=== PATIENT | female | born 1995 | race Caucasian/White ===

== ENCOUNTER 2019-12-22 10:07 | Emergency (ER) | payer OTHER ==
[~2019-12-22] VITALS: Ht 152.4 cm; Wt 54.4 kg
[2019-12-22] MEDS ORDERED: ZITHROMAX200 MG PO (13:33)
== END 2019-12-22 13:46 | disposition home or self-care (01) ==
LOC: ER 10:07
DX: O26.891 Other specified pregnancy related conditions, first trimester (principal); I10 Essential (primary) hypertension; Z3A.09 9 weeks gestation of pregnancy; Z03.818 Encounter for observation for suspected exposure to other biological agents ruled out

== ENCOUNTER → 2020-03-09 | Outpatient (CLI) | payer OTHER ==
[~2020-03-09] MED LIST: ZITHROMAX200 MG PO
== END | disposition home or self-care (01) ==
LOC: PRENATAL 08:00
PROVIDERS: ATTEND Obstetrics & Gynecology Maternal & Fetal Medicine
DX: O35.3XX1 Maternal care for (suspected) damage to fetus from viral disease in mother, fetus 1 (principal); O98.512 Other viral diseases complicating pregnancy, second trimester; O35.0XX1 Maternal care for (suspected) central nervous system malformation in fetus, fetus 1; Z36.89 Encounter for other specified antenatal screening; Z3A.20 20 weeks gestation of pregnancy

== ENCOUNTER → 2020-05-31 | Outpatient (CLI) | payer OTHER ==
[~2020-05-31] MED LIST changes: +ATABEX DHA 200200 MG PO; +COLACE100 MG PO; +IBUPROFEN600 MG PO; +LABETALOL HCL100 MG PO; +OXYC1TAB9 PO; +TAPAZOLE10 MG PO
== END | disposition home or self-care (01) ==
LOC: PRENATAL 10:00
PROVIDERS: ATTEND Obstetrics & Gynecology Maternal & Fetal Medicine
DX: O26.843 Uterine size-date discrepancy, third trimester (principal); O36.8131 Decreased fetal movements, third trimester, fetus 1; Z36.89 Encounter for other specified antenatal screening; Z3A.33 33 weeks gestation of pregnancy

== ENCOUNTER 2020-06-18 21:55 | Outpatient (CLI) | payer OTHER ==
[~2020-06-18 21:55] MED LIST changes: -ATABEX DHA 200200 MG PO; -COLACE100 MG PO; -IBUPROFEN600 MG PO; -LABETALOL HCL100 MG PO; -OXYC1TAB9 PO; -TAPAZOLE10 MG PO
[2020-06-18] MEDS ORDERED: ATABEX DHA 200200 MG PO (22:15)
== END 2020-06-19 10:46 | disposition home or self-care (01) ==
LOC: OBS/DEL 21:55
PROVIDERS: ATTEND Obstetrics & Gynecology
DX: O76 Abnormality in fetal heart rate and rhythm complicating labor and delivery (principal)

== ENCOUNTER 2020-06-29 06:37 | Inpatient (IN) | payer OTHER ==
[~2020-06-29] VITALS: Ht 152.4 cm; Wt 2.7 kg
[~2020-06-29 06:37] MED LIST changes: +ATABEX DHA 200200 MG PO
[2020-06-29] MEDS ORDERED: LABETALOL HCL100 MG PO (08:33)
[2020-06-29] MEDS ORDERED: TAPAZOLE10 MG PO (08:35)
[2020-07-01] MEDS ORDERED: IBUPROFEN600 MG PO (08:21)
[2020-07-01] MEDS ORDERED: COLACE100 MG PO (08:21)
[2020-07-01] MEDS ORDERED: OXYC1TAB9 PO (08:21)
== END 2020-07-01 15:02 | disposition home or self-care (01) | DRG 788 ==
LOC: LDR 06:37 → OB/GYN 06:37 → O/R 10:48 → OB/GYN 11:54
PROVIDERS: ADMIT Obstetrics & Gynecology; ATTEND Obstetrics & Gynecology
PROC: 4A1HXFZ Monitoring of Products of Conception, Cardiac Rhythm, External Approach (ICD-10-PCS; 2020-06-29)
PROC: 10D00Z1 Extraction of Products of Conception, Low, Open Approach (ICD-10-PCS; principal; 2020-06-29 09:00)
DX: O41.03X0 Oligohydramnios, third trimester, not applicable or unspecified (principal); O64.1XX0 Obstructed labor due to breech presentation, not applicable or unspecified; O99.824 Streptococcus B carrier state complicating childbirth; Z3A.36 36 weeks gestation of pregnancy; Z37.0 Single live birth